=== PATIENT | male | born 1935 | race Caucasian/White ===

== ENCOUNTER → 2016-06-21 | Outpatient (CLI) | payer MEDICARE, OTHER | END | disposition home or self-care (01) | LOC: CFH 12:45 | PROVIDERS: ATTEND Internal Medicine Critical Care Medicine | DX: J43.2 Centrilobular emphysema (principal); I70.0 Atherosclerosis of aorta; I25.10 Atherosclerotic heart disease of native coronary artery without angina pectoris; N28.1 Cyst of kidney, acquired; K57.30 Diverticulosis of large intestine without perforation or abscess without bleeding; M25.78 Osteophyte, vertebrae; I77.819 Aortic ectasia, unspecified site; J98.11 Atelectasis | CPT/HCPCS: 71250 ==

== ENCOUNTER → 2017-05-17 | Outpatient (CLI) | payer MEDICARE, OTHER | LOC: CFH 12:29 | PROVIDERS: ATTEND Family Medicine | DX: J84.10 Pulmonary fibrosis, unspecified (principal); N28.1 Cyst of kidney, acquired; K57.30 Diverticulosis of large intestine without perforation or abscess without bleeding; I27.20 Pulmonary hypertension, unspecified; J43.9 Emphysema, unspecified; J44.9 Chronic obstructive pulmonary disease, unspecified | CPT/HCPCS: 71250 ==

== ENCOUNTER → 2017-07-25 | Outpatient (CLI) | payer MEDICARE, OTHER ==
[~2017-07-25] MED LIST: OMNIPAQUE 350 MG/ML, 100ML BOTTLE ONE
[2017-07-25 14:10] LABS: CREATININE 1.21 mg/dL (0.7-1.3)
== END ==
LOC: RAD 13:18
PROVIDERS: ATTEND Family Medicine
DX: K76.0 Fatty (change of) liver, not elsewhere classified (principal); N28.1 Cyst of kidney, acquired; I70.0 Atherosclerosis of aorta; K57.30 Diverticulosis of large intestine without perforation or abscess without bleeding; J98.11 Atelectasis; M62.08 Separation of muscle (nontraumatic), other site; Z87.19 Personal history of other diseases of the digestive system
CPT/HCPCS: 36415; 74177; 82565; Q9967